=== PATIENT | female | born 1975 | race Caucasian/White ===

== ENCOUNTER 2022-05-06 14:38 | Emergency (ER) | payer SELFPAY ==
[~2022-05-06] VITALS: Ht 157.5 cm; Wt 74.8 kg
--- NOTE | 2022-05-06 14:39 | NUR ---
Patient to ER bed 01 to gown for evaluation. Side rails up. Report received from MICHELLE Ye.
[2022-05-06 14:40] VITALS: BP_SYST 191
--- NOTE | 2022-05-06 14:40 | NUR ---
ER Dr. Polanco at bedside examining patient.
--- NOTE | 2022-05-06 14:50 | NUR ---
Assumed care of pt who came from work at [facility] c/o nosebleed that started while she was at work transferring a pt from [facility] to bed. Pt states she has hx of HTN controlled with medication. Pt is calm and cooperative. BP is elevated, at bedside. Will monitor and provide care as ordered. Addendum: 05/06/22 at 1621 by [email or web address] Pt is A&Ox4.
[2022-05-06] MEDS ORDERED: cloNIDine HCL 0.1 MG TABLET PO ONE (15:00)
[2022-05-06 16:13] VITALS: BP_SYST 142
--- NOTE | 2022-05-06 16:14 | NUR ---
Patient given written and verbal discharge instructions and verbalizes understanding. ER Dr. Collin HERNANDEZ discussed with patient the results and treatment provided. Patient in stable condition. ID arm band removed. IV catheter removed intact and dressing applied, no active bleeding. Patient educated on pain management and to follow up with PMD. Pain Scale 0/10. Opportunity for questions provided and answered. Medication side effect fact sheet provided.
== END 2022-05-06 16:13 | disposition home or self-care (01) ==
LOC: SED 14:38
DX: R04.0 Epistaxis (principal); Z79.899 Other long term (current) drug therapy
CPT/HCPCS: 99284

== ENCOUNTER 2022-05-08 06:57 | Emergency (ER) | payer SELFPAY ==
[~2022-05-08] VITALS: Ht 152.4 cm; Wt 77.1 kg
[2022-05-08 07:03] VITALS: BP_SYST 179
--- NOTE | 2022-05-08 07:10 | NUR ---
HERE FOR FOLLOW FOR NOSEBLEED AND POSSIBLE RHINOROCKET REMOVAL. PT STATED THAT SHE WAS HERE LAST FRIDAY D/T NOSEBLEED. PER SHE WAS TOLD TO COME BACK FOR POSS REMOVAL. PT AAOX4, NO SOB NOTED AND NOT IN ANY DISTRESS AT THIS TIME.
--- NOTE | 2022-05-08 07:30 | NUR ---
PT PRESENTS TO THE ER BIB SELF FOR NOSE BULLET REMOVAL PT IS AAOX4 DENIES SOB C/O HEADACHE. NO BLEEDING. PT NOTES BULLET IN PLACE PAST 48 HOURS AND TOLERATED WELL.
--- NOTE | 2022-05-08 07:45 | NUR ---
ER at bedside examining patient.
[2022-05-08] MEDS ORDERED: ACETAMINOPHEN 500 MG TABLET ONE (07:48)
--- NOTE | 2022-05-08 08:06 | NUR ---
Patient given written and verbal discharge instructions and verbalizes understanding. ER MD discussed with patient the results and treatment provided. Patient in stable condition. ID arm band removed. Opportunity for questions provided and answered. Medication side effect fact sheet provided.
[2022-05-08 08:08] VITALS: BP_SYST 179
[2022-05-08] MEDS ORDERED: ACETAMINOPHEN 500 MG TABLET PO ONE (08:30)
== END 2022-05-08 08:06 | disposition home or self-care (01) ==
LOC: SED 06:57
DX: Z48.00 Encounter for change or removal of nonsurgical wound dressing (principal); Z79.899 Other long term (current) drug therapy
CPT/HCPCS: 99282